=== PATIENT | male | born 1965 ===

== ENCOUNTER 2024-06-28 05:19 | Day surgery (SDC) | payer OTHER ==
[2024-06-27 12:59] LABS: INR 1.02; PARTIAL THROMBOPLASTIN TIME 25.1 SECONDS (22.0-34.0); PROTHROMBIN TIME 10.7 SECONDS (9.0-11.5)
[~2024-06-28 05:19] MED LIST: CELECOXIB200 MG PO; HYOSCYAMINE0.125 M1 SL; INTESTINEX680 M1 PO; LIPITOR40 M1 PO; NEURONTIN300 MG PO; TAMS0.4C PO; TRAM1TAB98 PO
[2024-06-28] MEDS ORDERED: CEFAZOLIN SODIUM 1,000 MG VIAL IV ONE (08:30)
[2024-06-28] MEDS ORDERED: BUPIVACAINE HCL 30 ML VIAL IJ ONE (08:30)
[2024-06-28] MEDS ORDERED: LIDOCAINE HCL 1%/EPINEPHRINE 20ML VIAL IJ ONE (08:30)
[2024-06-28] MEDS ORDERED: HEPARIN SODIUM,PORCINE 500 UNITS/5 ML VIAL IV ONE (08:45)
== END 2024-06-28 11:30 | disposition home or self-care (01) ==
LOC: CIR.AMB 05:19
PROVIDERS: ATTEND Surgery
DX: C18.7 Malignant neoplasm of sigmoid colon (principal); R59.0 Localized enlarged lymph nodes; I82.622 Acute embolism and thrombosis of deep veins of left upper extremity; E78.00 Pure hypercholesterolemia, unspecified
CPT/HCPCS: 36561; C1751

== ENCOUNTER 2025-03-12 05:01 | Day surgery (SDC) | payer OTHER ==
[2025-03-02 13:11] VITALS: BP 132/89
[~2025-03-12] VITALS: Ht 170.2 cm; Wt 85.7 kg
[~2025-03-12 05:01] MED LIST changes: +XARELTO20 M1 PO
[2025-03-12] MEDS ORDERED: CEFAZOLIN SODIUM 1,000 MG VIAL ONE ×2 (05:58→07:01)
[2025-03-12] MEDS ORDERED: BUPIVACAINE HCL/MPF 0.5% 30ML VIAL ONE (07:00)
[2025-03-12] MEDS ORDERED: LIDOCAINE HCL 1%/EPINEPHRINE 20ML VIAL IJ ONE (07:00)
[2025-03-12] MEDS ORDERED: TRAM1TAB98 PO (09:28)
== END 2025-03-12 10:50 | disposition home or self-care (01) ==
LOC: CIR.AMB 05:01
PROVIDERS: ATTEND Surgery
DX: T82.594A Other mechanical complication of infusion catheter, initial encounter (principal); C18.7 Malignant neoplasm of sigmoid colon; R59.0 Localized enlarged lymph nodes